=== PATIENT | male | born 1990 | race Caucasian/White ===

== ENCOUNTER 2023-06-11 08:56 | Emergency (ER) | payer BC, SELFPAY ==
--- NOTE | ~2023-06-11 | XR_ITS ---
Right elbow Technique: AP, oblique, and lateral views were obtained. Clinical History: Pain Findings: No acute fracture or dislocation is seen. Osseous alignment is anatomic. Joint spaces are p reserved. There is no displacement of the fat pads, and soft tissues are unremarkable. Impression: Unremarkable radiographs. Reviewed, dictated and finalized at [facility]. [employer] Impression: Unremarkable radiographs.
[2023-06-11 09:05] VITALS: BP 147/75; PULSE 104; RESP 18; TEMP 36.8; O2SAT 98
--- NOTE | 2023-06-11 09:15 | ED.UPPEXIN ---
HPI - Extremity Injury (Upper) General Chief Complaint: Extremity Injury, Upper Stated Complaint: right arm/can't lift or straigten Time Seen by Provider: 06/11/23 09:15 Source: patient Mode of arrival: ambulatory Limitations: no limitations History of Present Illness HPI narrative: 32-year-old male presented for complaint of right arm pain swelling for 2 days. States he will put the right elbow swollen and has had decreased range of motion. He states 1 week ago he struck the elbow on a metal bar but only reported mild discomfort and no swelling at that time. He continued exercise, stating he exercised 7 days last week. States he did of exercises 3 days. Denies numbness, tingling, weakness of the extremity. Has taken ibuprofen. Related Data Allergies Allergy/AdvReac Type Severity Reaction Status Date / Time Penicillins Allergy Unknown Other Verified 06/11/23 09:12 Review of Systems Review of Systems: CONSTITUTIONAL: Denies body aches, fever, chills EYES: Denies visual changes CARDIOVASCULAR: Denies chest pain, palpitations, or edema. RESPIRATORY: Denies cough or dyspnea. SKIN: Denies rash, itching, or wounds. MUSCULOSKELETAL: right elbow pain/swelling; Denies back pain, or myalgia. NEUROLOGIC: Denies headache, numbness, tingling, or weakness. All systems reviewed & are unremarkable except as noted in HPI and below PMFSH Past Medical History Medical History (Updated 06/11/23 @ 10:06 by Diane Jo, CARMEL) No pertinent past medical history Comments At time of signature, I have reviewed and agree with nursing past medical, surgical, social and family history unless otherwise noted. Please see nursing chart for further information. There is no relevant family history pertinent to the presenting complaint Exam Narrative: GENERAL: Well-appearing CHEST: Speaks in full sentences. No respiratory distress. HEART: Regular rate and rhythm. Normal and equal peripheral pulses. EXTREMITIES: Right elbow moderate swelling, abrasion over the lateral epicondyle, swelling extends from proximal forearm and distal upper arm; decreased range of motion flexion to 90?, extension approx 120?. Hand has normal strength and sensation, No ecchymosis, No point tenderness. No obvious deformity; alignment normal, pulse palpable and equal bilaterally, skin warm, dry, pink. Capillary refill less than 3 seconds. SKIN: Warm, dry, no rash. NEURO: Alert and oriented x3. PSYCH: Normal mood and affect Course Course Emergency Course: Patient is aware of diagnosis, understands and agrees to treatment plan. Anticipatory guidance given. Patient agrees to follow-up as directed and is aware of reasons to seek care at the emergency department. Portions of this record may have been created with voice recognition software Level of Care: Express Care Visit Vital Signs Vital signs: Vital Signs Temperature 98.2 F 06/11/23 09:05 Pulse Rate 104 H 06/11/23 09:05 Respiratory Rate 18 06/11/23 09:05 Blood Pressure 147/75 H 06/11/23 09:05 Pulse Oximetry 98 06/11/23 09:05 Oxygen Delivery Room Air 06/11/23 09:05 Temperature 98.2 F 06/11/23 09:05 Pulse Rate 104 H 06/11/23 09:05 Respiratory Rate 18 06/11/23 09:05 Blood Pressure 147/75 H 06/11/23 09:05 Pulse Oximetry 98 06/11/23 09:05 Oxygen Delivery Room Air 06/11/23 09:05 Reviewed MDM - Extremity Injury (Upper) MDM Narrative Medical decision making narrative: results of x-ray reviewed with patient. Discussed physical exam findings. Advised supportive measures and signs/symptoms to go to the ER. Pt is appropriate for outpt treatment and f/u. Differential Diagnosis Differential diagnosis: Likely other (osteoarthritis, elbow dislocation, septic bursitis, epicondylitis, biceps tendon rupture) Imaging Data Radiologist's impression: Patient: Bal Ferreira : 1990 MR#: [id number] Age: 32 Acct:[id number] Loc: [facility]? ? ADM Date:
== END 2023-06-11 09:55 | disposition home or self-care (01) ==
PROVIDERS: Emergency Provider Nurse Practitioner Family
DX: M25.521 Pain in right elbow (principal); M19.90 Unspecified osteoarthritis, unspecified site
CPT/HCPCS: 73080; 99203; G0463

== ENCOUNTER 2024-03-30 08:40 | Emergency (ER) | payer BC, SELFPAY ==
[2024-03-30 08:45] VITALS: BP 145/87; PULSE 96; RESP 16; TEMP 36.1; O2SAT 97
--- NOTE | 2024-03-30 10:05 | ED.SKABFB ---
HPI - Skin/Abscess/Foreign Bdy General Chief complaint: Skin/Abscess/Foreign Body Stated complaint: poison coreen Source: patient Mode of arrival: ambulatory Limitations: no limitations History of Present Illness HPI narrative: 33-year-old male presented for complaint of spreading poison Coreen rash over the past 3 days after hunting. states the rash started on the left forearm and has spread across the chest and torso now on the face and buttock area. He has applied anti-itch cream with minimal relief. Also taking ibuprofen. Denies lip, tongue, or throat swelling, shortness of breath or wheezing. Denies changes to soap, detergent, lotion, or any other exposures. No one else in the house or any contacts with similar symptoms. Related Data Allergies Allergy/AdvReac Type Severity Reaction Status Date / Time Penicillins Allergy Unknown Other Verified 03/30/24 08:50 Review of Systems Review of Systems: CONSTITUTIONAL: Denies body aches, fever, chills, or sweats. EYES: Denies visual changes, redness, or discharge. ENT: Denies rhinorrhea, congestion CARDIOVASCULAR: Denies chest pain, palpitations, or edema. RESPIRATORY: Denies cough or dyspnea. GASTROINTESTINAL: Denies abdominal pain, nausea, vomiting, or diarrhea. SKIN: Per HPI MUSCULOSKELETAL: Denies back pain, joint pain, or myalgia. NEUROLOGIC: Denies headache, numbness, tingling, or weakness. [facility] Past Medical History Medical History Gout History of leukocytosis Joint pain No pertinent past medical history Pain and swelling of right elbow Vitamin D deficiency Family History Family History Unknown Diabetes mellitus Arthritis Social History Social History Social History: caffeine use Smoking status: Current every day smoker (vaping) Tobacco type: smokeless tobacco Smokeless tobacco user: chewing tobacco Alcohol intake: current Drinks per week: 2 Substance use: never Substance use type: does not use Lack of Transportation: No Lack of Food: Never True Current Housing: I Have Housing Concerned About Future Housing: No Difficulty Paying Gas/Electric Bills: No Difficulty Paying for Meds: No Currently Unemployed: No Education: High School Diploma/GED Difficulty w/ Childcare or Family Care: No Occupation/Education: occupation 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 Please see nursing chart for further information. There is no relevant family history pertinent to the presenting complaint Exam Narrative: GENERAL: Well-appearing EYES: PERRLA, conjunctivae clear, and EOMI. ENT: Mucous membranes moist. Oropharynx without edema, erythema or lesions. CHEST: Clear to auscultation. No respiratory distress. HEART: Regular rate and rhythm. SKIN: Warm, dry. Significant areas of vesicles on erythematous base c/w contact dermatitis noted to torso, buttocks, and upper extremities. NEURO: Alert and oriented x3. PSYCH: Normal mood and affect Course Course Emergency Course: Patient is aware of diagnosis, understands and agrees to treatment plan. Anticipatory guidance given. Patient agrees to follow-up as directed and is aware of reasons to seek care at the emergency department. Portions of this record may have been created with voice recognition software Level of Care: Express Care Visit Vital Signs Vital signs: Vital Signs Temperature 97.0 F L 03/30/24 08:45 Pulse Rate 96 03/30/24 08:45 Respiratory Rate 16 03/30/24 08:45 Blood Pressure 145/87 H 03/30/24 08:45 Pulse Oximetry 97 03/30/24 08:45 Oxygen Delivery Room Air 03/30/24 08:45 Temperature 97.0 F L 03/30/24 08:45 Pulse Rate 96 03/30/24 08:45 Respiratory Rate 16 03/30/24 08:45 Blood Pressure 145/87 H 03/30/24 08:45 Pulse Oximetry 97 03/30/24 08:45 Oxygen Delivery Room Air 03/30/24 08:45 Reviewed MDM - Skin/Abscess/Foreign Bdy MDM Narrative Medical decision making narrative: Discussed physical exam findings. IM Solu-Medrol and p.o. Pepcid given in clinic. Reviewed Rx's. Advised supportive measures and signs/symptoms to go to the ER. Pt is appropriate for outpt treatment and f/u. Differential Diagnosis Differential diagnosis: Likely abscess of skin or subcutaneous tissue, urticaria, herpes zoster, cellulitis and contact dermatitis Discharge Plan Discharge Clinical Impression: Contact dermatitis Patient Disposition: Home, Self-Care Condition: Stable Instructions: Antibiotic Form, Poison Coreen (ED), General Allergic Reaction (ED) Additional Instructions: Take steroids and Pepcid as directed. Start 03/31/24. Benadryl every 8 hours as needed, it may cause drowsiness. You can take Zyrtec according to package directions. you can apply anti-itch cream such as Benadryl, calamine hydrocortisone as needed Cool compresses to the sites of itching, avoid hot water. Avoid scratching to reduce the risk of infection Follow up with your primary care provider as needed in 1 week Go to the ER for worsening symptoms or concerns (lip, tongue, throat swelling/itching, trouble breathing etc) Prescriptions: New famotidine [Pepcid] 40 mg tablet 40 mg PO DAILY Qty: 10 0RF Rx Instructions: start 03/31 prednisone 20 mg tablet 20 mg PO DAILY Qty: 18 0RF Rx Instructions: take 3 tablets daily for 3 days, then 2 tablets daily for 3 days then 1 tablet daily for 3 days. Start 03/31 Follow-up/Referrals: PHYSICIAN NOT ON STAFF,NONSTAFF [Primary Care Provider] - Stand Alone Forms: Work/School Release IP
[2024-03-30] MEDS: FAMOTIDINE 20 MG TABLET 40 MG PO (10:17)
[2024-03-30] MEDS: methylPREDNISolone SOD SUCC 125 MG VIAL IM (10:18)
== END 2024-03-30 10:26 | disposition home or self-care (01) ==
PROVIDERS: Emergency Provider Nurse Practitioner Family
DX: L25.9 Unspecified contact dermatitis, unspecified cause (principal); F17.290 Nicotine dependence, other tobacco product, uncomplicated; F17.220 Nicotine dependence, chewing tobacco, uncomplicated; M10.9 Gout, unspecified
CPT/HCPCS: 96372; 99213; A9270; G0463; J2919